=== PATIENT | male | born 1955 | race Caucasian/White ===

== ENCOUNTER 2023-12-12 06:35 | Outpatient (CLI) | payer MEDICARE, SELFPAY ==
--- NOTE | ~2023-12-12 | XR_ITS ---
Right Knee Technique: AP, lateral, and sunrise views were obtained. Clinical History: Pain Findings: No fracture or dislocation is seen. 2 orthopedic screws are present at the proximal right t ibia. Osseous alignment is anatomic. Joint spaces are preserved without degenerative or erosive landa e. Soft tissues are unremarkable. No joint effusion is seen. Impression: No acute abnormality. 2 orthopedic screws at the proximal right tibia. Correlate with surgical history. Reviewed, dictated and finalized at location M. Impression: No acute abnormality. 2 orthopedic screws at the proximal right tibia. Correlate with surgical histor y.
== END 2023-12-12 06:36 | disposition home or self-care (01) ==
PROVIDERS: Visit Provider Orthopaedic Surgery
DX: M25.561 Pain in right knee (principal)
CPT/HCPCS: 73564

== ENCOUNTER 2024-08-01 13:45 | Emergency (ER) | payer MEDICARE, SELFPAY ==
--- NOTE | ~2024-08-01 | XR_ITS ---
EXAMINATION: XR shoulder LT min 2V DATE: 08/01/2024 14:07 INDICATION: Left shoulder injury TECHNIQUE: AP internally and externally rotated, AP oblique externally rotated and transscapular Y vi ews of the left shoulder were obtained. COMPARISON: None FINDINGS: Old healed left clavicle diaphyseal fracture deformity. Additional old healed fracture the anterior l eft third rib Bone alignment is otherwise normal. No acute fracture. Mild glenohumeral and acromiocla vicular osteoarthritis. Soft tissues are unremarkable. Visualized portion of the lungs are clear. IMPRESSION: 1. Old healed left clavicle fracture deformity and more subtle old healed anterior left third rib fra cture. No acute osseous abnormality. 2. Mild left glenohumeral and acromioclavicular osteoarthritis. Reviewed, dictated and finalized at location A. IMPRESSION: 1. Old healed left clavicle fracture deformity and more subtle old healed anter ior left third rib fracture. No acute osseous abnormality. 2. Mild left glenohumeral and acromioclavicular osteoarthritis.
[2024-08-01 13:53] VITALS: BP 125/69; PULSE 70; RESP 16; TEMP 36.4; O2SAT 100
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
== END 2024-08-01 14:31 | disposition home or self-care (01) ==
PROVIDERS: Emergency Provider Nurse Practitioner Family
DX: S43.402A Unspecified sprain of left shoulder joint, initial encounter (principal); V19.9XXA Pedal cyclist (driver) (passenger) injured in unspecified traffic accident, initial encounter; S40.012A Contusion of left shoulder, initial encounter; M19.012 Primary osteoarthritis, left shoulder; Z87.891 Personal history of nicotine dependence
CPT/HCPCS: 73030; 99213; G0463